=== PATIENT | male | born 1995 | race Caucasian/White ===

== ENCOUNTER 2021-01-01 14:01 | Inpatient (IN) | payer MEDICAID, OTHER ==
[~2021-01-01] VITALS: Ht 172.7 cm; Wt 59.1 kg
[2021-01-01 14:57] LABS: COVID AG,FIA SOURCE NASOPHARYNGEAL
[2021-01-01 15:03] LABS: BASOPHILS % (AUTO) 1.1 % (0.0-2.0); EOSINOPHILS % (AUTO) 2.2 % (1.0-6.0); HEMATOCRIT 31.2 % (41-53); HEMOGLOBIN 9.6 g/dL (13.5-17.5); LYMPHOCYTES # (AUTO) 2.7 K/uL (1.0-4.8); LYMPHOCYTES % (AUTO) 28.8 % (22.0-44.0); MEAN CORPUSCULAR HEMOGLOBIN 22.7 pg (26.0-34.0); MEAN CORPUSCULAR HGB CONC 30.9 G/dL (31.0-37.0); MEAN CORPUSCULAR VOLUME 74 fL (80-100); MONOCYTES # (AUTO) 0.8 K/uL (0.1-1.0); MONOCYTES % (AUTO) 8.4 % (2.0-9.0); NEUTROPHILS # (AUTO) 5.5 K/uL (1.8-7.7); NEUTROPHILS % (AUTO) 59.5 % (40.0-70.0); PLATELET COUNT (AUTO) 713 K/uL (150-450); RED BLOOD CELL COUNT(AUTO) 4.24 MIL/uL (4.50-5.90)
[2021-01-01 15:11] LABS: AMPHET/METH SCREEN,URINE POSITIVE (NEGATIVE); BENZODIAZEPINES SCREEN,URINE NEGATIVE (NEGATIVE); CANNABINOID SCREEN,URINE POSITIVE (NEGATIVE); COCAINE SCREEN,URINE NEGATIVE (NEGATIVE); METHADONE SCREEN, URINE NEGATIVE (NEGATIVE); OPIATE SCREEN,URINE NEGATIVE (NEGATIVE)
[2021-01-01 15:22] LABS: ANION GAP 8 mmol/L (8-16); CALCIUM, TOTAL 8.6 mg/dL (8.8-10.5); CARBON DIOXIDE 28 mmol/L (22-29); CHLORIDE 102 mmol/L (98-107); CREATININE 1.08 mg/dL (0.60-1.30); GLOMERULAR FILTR. RATE CALC > 60 mL/min (>60); GLUCOSE,RANDOM 90 mg/dL (70-110); POTASSIUM 3.8 mmol/L (3.5-5.1); SODIUM SERUM 138 mmol/L (136-145); UREA NITROGEN, BLOOD 10 mg/dL (7-18)
[2021-01-01 15:28] LABS: BARBITURATE SCREEN, URINE NEGATIVE (NEGATIVE)
[2021-01-01 15:28] LABS: ALANINE AMINOTRANSFERASE 46 U/L (12-78); ALBUMIN 3.6 g/dL (3.4-5.0); ALKALINE PHOSPHATASE 109 U/L (46-116); ASPARTATE AMINOTRANSFERASE 33 U/L (15-37); BILIRUBIN,TOTAL 0.2 mg/dL (0.1-1.0); TOTAL PROTEIN, SERUM 7.7 g/dL (6.4-8.2)
[2021-01-01 15:31] LABS: PHENCYCLIDINE SCREEN,URINE NEGATIVE (NEGATIVE)
[2021-01-01] MEDS ORDERED: GuaiFENesin/D-METHORPHAN [SUGAR-FREE] 200-20MG/10 ML SYRUP UDCUP PO PRN (15:45)
[2021-01-01] MEDS ORDERED: LOPERAMIDE HCL 2 MG CAPSULE PO PRN (15:45)
[2021-01-01] MEDS ORDERED: HydrOXYzine PAMOATE 50 MG CAPSULE PO PRN (15:45)
[2021-01-01] MEDS ORDERED: PROMETHAZINE HCL 25 MG TABLET PO PRN (15:45)
[2021-01-01] MEDS ORDERED: MAG HYDROX/AL HYDROX/SIMETH ES 30 ML SUSPENSION UDCUP PO PRN (15:45)
[2021-01-01] MEDS ORDERED: MAGNESIUM HYDROXIDE SUSPENSION 30 ML UDCUP PO PRN (15:45)
[2021-01-01] MEDS ORDERED: ZOLPIDEM TARTRATE 10 MG TABLET PO PRN (15:45)
[2021-01-01] MEDS ORDERED: TUBERCULIN, PURIFIED PROTEIN DERIVATIVE 5 TU/0.1 ML SYRINGE ID ONE (15:45)
[2021-01-01] MEDS ORDERED: ACETAMINOPHEN 325 MG TABLET PO PRN (15:45)
[2021-01-01] MEDS ORDERED: DiphenhydrAMINE HCL 50 MG/ML VIAL IM ONE (17:00)
[2021-01-01] MEDS ORDERED: LORazepam 2 MG/ML VIAL IM ONE (17:00)
[2021-01-01] MEDS ORDERED: HALOPERIDOL LACTATE 5 MG/ML VIAL IM ONE (17:00)
[2021-01-01 20:03] VITALS: BP 100/60
[2021-01-01] MEDS: MIRTAZAPINE 15 MG TABLET PO SCH (20:31)
[2021-01-01] MEDS: THIAMINE 100 MG TABLET PO SCH (20:31)
[2021-01-01] MEDS: MELATONIN 5 MG TABLET PO SCH (20:31)
[2021-01-02] MEDS: MULTIVITAMINS WITH MINERALS, THERAPEUTIC TABLET PO SCH (09:22)
[2021-01-02] MEDS: FOLIC ACID 1 MG TABLET PO SCH (09:22)
[2021-01-02] MEDS: THIAMINE 100 MG TABLET PO SCH ×2 (09:22→16:46)
[2021-01-02] MEDS: OMEGA-3/DHA/EPA/FISH OIL 1,000 MG CAPSULE PO SCH (09:23)
[2021-01-02] MEDS: NALTREXONE HCL 50 MG TABLET PO SCH (09:23)
[2021-01-02 09:57] VITALS: BP 126/81
[2021-01-02 16:28] VITALS: BP 120/81
[2021-01-02] MEDS: LORazepam 2 MG TABLET PO PRN (17:42)
[2021-01-02] MEDS: MIRTAZAPINE 15 MG TABLET PO SCH (20:17)
[2021-01-02] MEDS: MELATONIN 5 MG TABLET PO SCH (20:17)
[2021-01-03 06:32] VITALS: BP 118/73
[2021-01-03] MEDS: LORazepam 2 MG TABLET PO PRN ×3 (08:45→20:29)
[2021-01-03] MEDS: FOLIC ACID 1 MG TABLET PO SCH (08:45)
[2021-01-03] MEDS: OMEGA-3/DHA/EPA/FISH OIL 1,000 MG CAPSULE PO SCH (08:45)
[2021-01-03] MEDS: THIAMINE 100 MG TABLET PO SCH ×2 (08:45→16:26)
[2021-01-03] MEDS: NALTREXONE HCL 50 MG TABLET PO SCH (08:45)
[2021-01-03] MEDS: MULTIVITAMINS WITH MINERALS, THERAPEUTIC TABLET PO SCH (08:45)
[2021-01-03 09:00] VITALS: BP 141/80
[2021-01-03] MEDS: QUEtiapine FUMARATE 100 MG TABLET PO PRN ×3 (11:16→20:29)
[2021-01-03 16:27] VITALS: BP 107/65
[2021-01-03] MEDS: MIRTAZAPINE 15 MG TABLET PO SCH (20:29)
[2021-01-03] MEDS: MELATONIN 5 MG TABLET PO SCH (20:29)
[2021-01-04 05:38] VITALS: BP 116/68
[2021-01-04 08:26] VITALS: BP 128/82
[2021-01-04] MEDS: QUEtiapine FUMARATE 100 MG TABLET PO PRN (08:35)
[2021-01-04] MEDS ORDERED: FLUoxetine HCL 20 MG CAPSULE PO SCH (09:00)
[2021-01-04] MEDS: FOLIC ACID 1 MG TABLET PO SCH (09:05)
[2021-01-04] MEDS: MULTIVITAMINS WITH MINERALS, THERAPEUTIC TABLET PO SCH (09:05)
[2021-01-04] MEDS: OMEGA-3/DHA/EPA/FISH OIL 1,000 MG CAPSULE PO SCH (09:05)
[2021-01-04] MEDS: NALTREXONE HCL 50 MG TABLET PO SCH (09:05)
[2021-01-04] MEDS: THIAMINE 100 MG TABLET PO SCH ×2 (09:05→16:20)
[2021-01-04] MEDS: LORazepam 2 MG TABLET PO PRN ×2 (10:15→14:15)
[2021-01-04] MEDS ORDERED: MELA5TAB40 PO (13:52)
[2021-01-04] MEDS ORDERED: NALT50TA PO (13:52)
[2021-01-04] MEDS ORDERED: FLUO20CA36 PO (13:52)
[2021-01-04] MEDS ORDERED: OMEG-135 PO (13:52)
[2021-01-04] MEDS ORDERED: MIRT-89 PO (13:54)
[2021-01-04 16:16] VITALS: BP 107/61
== END 2021-01-04 20:07 | disposition home or self-care (01) | DRG 751 ==
LOC: EMS 14:01 → B3A 17:38
PROVIDERS: ADMIT Psychiatry & Neurology Psychiatry; ATTEND Psychiatry & Neurology Psychiatry
DX: F33.2 Major depressive disorder, recurrent severe without psychotic features (principal); R45.851 Suicidal ideations; Z91.19 Patient's noncompliance with other medical treatment and regimen; D64.9 Anemia, unspecified; Z20.822 Contact with and (suspected) exposure to COVID-19; Z79.899 Other long term (current) drug therapy; Z55.9 Problems related to education and literacy, unspecified; Z59.0 Homelessness; Z65.3 Problems related to other legal circumstances; Z87.891 Personal history of nicotine dependence
CPT/HCPCS: 80053; 85025; 99285; G0480; J1200; J1630; J2060; Q9967

== ENCOUNTER 2021-09-11 05:30 | Emergency (ER) | payer MEDICAID, OTHER ==
[~2021-09-11] VITALS: Ht 175.3 cm; Wt 68.2 kg
[~2021-09-11 05:30] MED LIST: FLUO20CA36 PO; MELA5TAB40 PO; MIRT-89 PO; NALT50TA PO; OMEG-108 PO
[2021-09-11 06:20] VITALS: BP 132/75
[2021-09-11] MEDS ORDERED: CEPH-558 PO (06:25)
[2021-09-11] MEDS ORDERED: SULF-261 PO (06:25)
== END 2021-09-11 06:41 | disposition home or self-care (01) ==
LOC: EMS 05:32
DX: K13.0 Diseases of lips (principal); F17.210 Nicotine dependence, cigarettes, uncomplicated; F12.90 Cannabis use, unspecified, uncomplicated; F15.90 Other stimulant use, unspecified, uncomplicated; Z98.890 Other specified postprocedural states
CPT/HCPCS: 99283; Z7502